=== PATIENT | female | born 1955 | race Caucasian/White ===

== ENCOUNTER 2016-08-26 13:41 | Emergency (ER) | payer OTHER ==
[2016-08-26 14:05] LABS: BILIRUBIN 2+ mg/dL (NEGATIVE); BLOOD 3+ Ery/uL (NEGATIVE); CLARITY CLEAR (CLEAR); COLOR RED (YELLOW); GLUCOSE (U) TRACE mg/dL (NORMAL); KETONE (U) TRACE mg/dL (NEGATIVE); LEUKOCYTES 3+ Leu/uL (NEGATIVE); NITRITE POSITIVE (NEGATIVE); PROTEIN 3+ mg/dL (NEGATIVE)
[2016-08-26 14:12] LABS: BACTERIA TRACE; URINARY RBC TNTC
== END 2016-08-26 15:40 | disposition home or self-care (01) ==
LOC: FER 13:41
PROVIDERS: Emergency Medicine
DX: N39.0 Urinary tract infection, site not specified (principal); R31.9 Hematuria, unspecified; M81.0 Age-related osteoporosis without current pathological fracture
CPT/HCPCS: 81001; 87076; 87088; 87186; 99283